=== PATIENT | female | born 1955 | race Caucasian/White ===

== ENCOUNTER → 2020-08-29 | Day surgery (SDC) | payer MEDICARE, OTHER ==
[2020-08-27 09:14] LABS: BASOPHILS % 0.6 % (0.0-1.0); EOSINOPHILS # (AUTO) 0.4 (0.0-0.4); EOSINOPHILS % 6.5 % (0.0-6.0); HEMATOCRIT 32.2 % (34.2-44.1); HEMOGLOBIN 10.3 g/dL (12.0-16.0); LYMPHOCYTES # (AUTO) 0.8 (1.0-3.2); LYMPHOCYTES % 15.5 % (18.0-39.1); MEAN CORPUSCULAR VOLUME 87.5 fL (81-99); MONOCYTES # (AUTO) 0.5 (0.2-0.8); MONOCYTES % 9.9 % (4.4-11.3); NEUTROPHILS # (AUTO) 3.6 (2.1-6.9); NEUTROPHILS % 66.9 % (38.7-80.0); PLATELET COUNT 281 x10e3/uL (140-360); RED BLOOD COUNT 3.68 x10e6/uL (3.6-5.1); RED CELL DISTRIBUTION WIDTH 14.1 % (11.7-14.4)
[2020-08-27 09:38] LABS: ANION GAP 12.6 mmol/L (8-16); CALCIUM 8.8 mg/dL (8.4-10.2); CREATININE, SERUM 3.87 mg/dL (0.57-1.11); POTASSIUM 5.6 mmol/L (3.5-5.1)
[~2020-08-29] MED LIST: ALBUTEROL SULF8.5 GM; ATORVASTATIN CA20 MG PO; BACTRIM DS TAB1 EACH PO; BUPIVACAINE HCL 0.5% INJ 30 ML VIAL INJ ONE; CIPRO500 MG PO; DEXAMETHASONE SOD PHOS INJ 4 MG/ML VIAL ONE; DIOVAN80 MG PO; FENTANYL CITRATE/PF 100MCG/2 ML INJ ONE; FUROSEMIDE40 MG PO; LEVEMIR100 UNIT/1 SC; LIDOCAINE HCL 2% LOCAL INJ 5 ML SDV VIAL INJ ONE; METOPROLOL SUCC25 MG PO; MIDAZOLAM HCL 2 MG/2 ML VIAL ONE; NOVOLIN 70100 UNITS/ SQ; PROPOFOL IV EMULSION 10 MG/ML 20 ML VIAL ONE; SODIUM CHLORIDE 0.9% 250ML 250 ML ONE; TAMIFLU75 MG PO; TRADJENTA5 MG; Vancomycin IV 1 GM VIAL ONE; ZOFRAN ODT4 MG PO
[2020-08-29 08:05] VITALS: BP 146/78
== END | disposition home or self-care (01) ==
LOC: OR 05:50
PROVIDERS: ATTEND Podiatrist Foot & Ankle Surgery
DX: M86.572 Other chronic hematogenous osteomyelitis, left ankle and foot (principal); L97.524 Non-pressure chronic ulcer of other part of left foot with necrosis of bone; E11.9 Type 2 diabetes mellitus without complications; I10 Essential (primary) hypertension; Z01.810 Encounter for preprocedural cardiovascular examination; Z01.812 Encounter for preprocedural laboratory examination; Z79.4 Long term (current) use of insulin
CPT/HCPCS: 28122 ×3; 36415 ×2; 80048; 82948; 84132; 85025; 87071; 87075; 87186; 87205; 93005; C1713; J2001; J2250; J2704; J3010; J3370; J7050; J1100

== ENCOUNTER 2024-06-30 15:09 | Emergency (ER) | payer MEDICARE ==
[~2024-06-30] VITALS: Ht 172.7 cm; Wt 106.6 kg
[~2024-06-30 15:09] MED LIST changes: -BUPIVACAINE HCL 0.5% INJ 30 ML VIAL INJ ONE; -DEXAMETHASONE SOD PHOS INJ 4 MG/ML VIAL ONE; -FENTANYL CITRATE/PF 100MCG/2 ML INJ ONE; -LIDOCAINE HCL 2% LOCAL INJ 5 ML SDV VIAL INJ ONE; -MIDAZOLAM HCL 2 MG/2 ML VIAL ONE; -PROPOFOL IV EMULSION 10 MG/ML 20 ML VIAL ONE; -SODIUM CHLORIDE 0.9% 250ML 250 ML ONE; -Vancomycin IV 1 GM VIAL ONE
[2024-06-30] MEDS ORDERED: FLUORESCEIN SOD(OPTH) 1 MG STRP ONE (16:04)
[2024-06-30] MEDS ORDERED: TETRACAINE HCL 0.5% OPTH SOLN 4 ML BTL ONE (16:04)
[2024-06-30 18:46] VITALS: PULSE 78; RESP 17; TEMP 97.9
[2024-06-30] MEDS: VALSARTAN 80 MG TAB PO ONE (19:31)
[2024-06-30] MEDS: HYDRALAZINE HCL 20 MG/ML VIAL IV STA (20:04)
[2024-06-30 20:10] VITALS: BP 171/74; PULSE 84; RESP 15; TEMP 98.9; O2SAT 95
== END 2024-06-30 20:21 | disposition short-term general hospital (02) ==
LOC: ER 15:49
DX: H57.11 Ocular pain, right eye (principal); I10 Essential (primary) hypertension; E11.9 Type 2 diabetes mellitus without complications; H16.001 Unspecified corneal ulcer, right eye; H16.9 Unspecified keratitis
CPT/HCPCS: 99284; J0360